=== PATIENT | female | born 1950 | race Caucasian/White ===

== ENCOUNTER 2018-02-14 15:59 | Emergency (ER) | payer OTHER ==
[2018-02-14 16:56] LABS: Absolute Lymphocytes (CBC) 1.9 K/uL (0.7-4.9); Absolute Neutrophil 7.9 K/uL (1.8-8.0); Basophils % 0.6 % (0-1.3); Eosinophils % 1.8 % (0-4.4); Hematocrit 32.1 % (36.0-45.0); MCH 30.1 pg (27.0-35.0); MCV 86.1 fL (80-100); MPV 10.1 fL (7.6-11.3); Monocytes % 9.4 % (3.3-12.3); RBC Red Blood Cell Count 3.73 M/uL (3.86-4.86)
[2018-02-14 16:57] LABS: Protime INR 0.96
--- NOTE | 2018-02-14 17:20 | RAD REPORT ---
EXAM DESCRIPTION: RAD - Chest Single View - 02/14/2018 5:14 pm CLINICAL HISTORY: Tachycardia COMPARISON: 09/30/2014 FINDINGS: Portable technique limits examination quality. The lungs are grossly clear. The heart is normal in size. Prominent degenerative changes are present in the right shoulder. IMPRESSION: No acute intrathoracic process suspected.
--- NOTE | 2018-02-14 17:40 | EDPHYS ---
Physician Documentation [facility] Name: Nuha Hussein Age: 67 yrs Sex: Female : 1950 Arrival Date: 02/14/2018 Time: 16:01 Bed 2 Private MD: ED Physician Regino Mcgregor HPI: 02/14 17:37 This 67 yrs old Female presents to ER via Ambulatory with complaints of gs Abnormal EKG. 17:37 The patient presents with a history of irregular heart beat, heart racing. Context: The gs symptoms occur at rest. Onset: The symptoms/episode began/occurred last night. Duration: The patient or guardian reports multiple episodes, that wax and wane, with no pattern. Modifying factors: The symptoms are aggravated by nothing. The symptoms are alleviated by nothing. Associated signs and symptoms: Pertinent negatives: chest pain, SOB, syncope. Severity of symptoms: At their worst the symptoms were moderate in the emergency department the symptoms have improved markedly. The patient has experienced similar episodes in the past, a few times. Historical: - Allergies: 16:20 No Known Allergies; aj - Home Meds: 16:20 Lisinopril Oral [Active]; amlodipine oral [Active]; Metformin Oral [Active]; Glipizide aj Oral [Active]; Lovastatin Oral [Active]; - PMHx: 16:20 Hyperlipidemia; Hypertension; Diabetes - NIDDM; aj - PSHx: 16:20 None; aj - Immunization history:: Adult Immunizations up to date. - Social history:: Smoking status: Patient/guardian denies using tobacco. ROS: 17:37 All other systems are negative. gs Exam: 17:37 Head/Face: Normocephalic, atraumatic. Eyes: Pupils equal round and reactive to light, gs extra-ocular motions intact. Lids and lashes normal. Conjunctiva and sclera are non-icteric and not injected. Cornea within normal limits. Periorbital areas with no swelling, redness, or edema. ENT: Nares patent. No nasal discharge, no septal abnormalities noted. Tympanic membranes are normal and external auditory canals are clear. Oropharynx with no redness, swelling, or masses, exudates, or evidence of obstruction, uvula midline. Mucous membranes moist. Neck: Trachea midline, no thyromegaly or masses palpated, and no cervical lymphadenopathy. Supple, full range of motion without nuchal rigidity, or vertebral point tenderness. No Meningismus. Chest/axilla: Normal chest wall appearance and motion. Nontender with no deformity. No lesions are appreciated. Cardiovascular: Regular rate and rhythm with a normal S1 and S2. No gallops, murmurs, or rubs. Normal PMI, no JVD. No pulse deficits. Respiratory: Lungs have equal breath sounds bilaterally, clear to auscultation and percussion. No rales, rhonchi or wheezes noted. No increased work of breathing, no retractions or nasal flaring. Abdomen/GI: Soft, non-tender, with normal bowel sounds. No distension or tympany. No guarding or rebound. No evidence of tenderness throughout. Back: No spinal tenderness. No costovertebral tenderness. Full range of motion. Skin: Warm, dry with normal turgor. Normal color with no rashes, no lesions, and no evidence of cellulitis. MS/ Extremity: Pulses equal, no cyanosis. Neurovascular intact. Full, normal range of motion. Neuro: Awake and alert, GCS 15, oriented to person, place, time, and situation. Cranial nerves II-XII grossly intact. Motor strength 5/5 in all extremities. Sensory grossly intact. Cerebellar exam normal. Normal gait. 17:37 Constitutional: The patient appears alert, awake. 17:37 ECG was reviewed by the Attending Physician. Vital Signs: 16:20 BP 168 / 88; Pulse 90; Resp 20; Pulse Ox 99% on R/A; Weight 108.41 kg; Height 5 ft. 8 aj in. (172.72 cm); Pain 0/10; 17:20 BP 142 / 77; Pulse 89; Resp 18; Pulse Ox 100% on R/A; Pain 0/10; sg 18:20 BP 140 / 76; Pulse 87; Resp 17 S; Pulse Ox 100% on R/A; Pain 0/10; sg 16:20 Body Mass Index 36.34 (108.41 kg, 172.72 cm) aj MDM: 16:18 Patient medically screened. 17:37 Differential diagnosis: arrythmia, dehydration, stress disorder, cad. Data reviewed: vital signs, nurses notes. Response to treatment: the patient's symptoms have resolved after treatment, and as a result, I will discharge patient. 02/14 16:24 Order name: Basic Metabolic Panel; Complete Time: 17:16 02/14 16:24 Order name: CBC with Diff; Complete Time: 17:16 02/14 16:24 Order name: PT-INR; Complete Time: 17:16 02/14 16:24 Order name: Troponin (emerg Dept Use Only); Complete Time: 17:16 02/14 17:17 Order name: TSH 02/14 17:17 Order name: Thyroid Stimulating Hormone [facility] 02/14 16:24 Order name: XRAY Chest (1 view); Complete Time: 17:24 02/14 16:24 Order name: EKG; Complete Time: 16:25 02/14 16:24 Order name: Cardiac monitoring; Complete Time: 16:45 02/14 16:24 Order name: EKG - Nurse/Tech; Complete Time: 16:45 02/14 16:24 Order name: IV Saline Lock; Complete Time: 16:45 02/14 16:24 Order name: Labs collected and sent; Complete Time: 16:45 02/14 16:24 Order name: O2 Per Protocol; Complete Time: 16:45 02/14 16:24 Order name: O2 Sat Monitoring; Complete Time: 16:45 gs EC:37 Rate is 82 beats/min. Rhythm is regular. CT interval is normal. QRS interval is normal. gs QT interval is normal. T waves are Normal. No ST changes noted. Clinical impression: Normal ECG. Interpreted by me. Administered Medications: No medications were administered Disposition: 02/14/18 17:39 Discharged to Home. Impression: Palpitations. - Condition is Stable. - Discharge Instructions: Palpitations. - Medication Reconciliation Form, Thank You Letter, Antibiotic Education, Prescription Opioid Use form. - Follow up: Cornelius Blount MD; When: 2 - 3 days; Reason: Re-evaluation by your physician. Signatures: Dispatcher [employer] EDJavier Tolbert RN RN sg Myers, Amanda, RN RN aj Starr, Gregory, MD MD
--- NOTE | 2018-02-14 17:40 | ER ---
Nurse's Notes [facility] Name: Nuha Hussein Age: 67 yrs Sex: Female : 1950 Arrival Date: 02/14/2018 Time: 16:01 Bed 2 Private MD: Diagnosis: Palpitations Presentation: 02/14 16:17 Presenting complaint: Patient states: Rapid heart rate with nausea last night at 2100. aj Went to [facility] this afternoon and had abnormal EKG. Denies chest pain currently. Transition of care: patient was not received from another setting of care. Onset of symptoms was February 13, 2018. Initial Sepsis Screen: Does the patient meet any 2 criteria? No. Patient's initial sepsis screen is negative. Does the patient have a suspected source of infection? No. Patient's initial sepsis screen is negative. Care prior to arrival: None. 16:17 Method Of Arrival: Ambulatory 16:17 Acuity: JOSE 3 Triage Assessment: 16:20 General: Appears in no apparent distress. comfortable, Behavior is calm, cooperative, aj appropriate for age. Pain: Denies pain. Neuro: Level of Consciousness is awake, alert, obeys commands, Oriented to person, place, time, situation. Cardiovascular: Capillary refill < 3 seconds in bilateral fingers. Respiratory: Airway is patent Respiratory effort is even, unlabored, Respiratory pattern is regular, symmetrical. Derm: Skin is intact, is healthy with good turgor, Skin is pink, warm \T\ dry. normal. Historical: - Allergies: 16:20 No Known Allergies; aj - Home Meds: 16:20 Lisinopril Oral [Active]; amlodipine oral [Active]; Metformin Oral [Active]; Glipizide aj Oral [Active]; Lovastatin Oral [Active]; - PMHx: 16:20 Hyperlipidemia; Hypertension; Diabetes - NIDDM; aj - PSHx: 16:20 None; aj - Immunization history:: Adult Immunizations up to date. - Social history:: Smoking status: Patient/guardian denies using tobacco. Screenin:30 Abuse screen: Denies threats or abuse. Denies injuries from another. Nutritional ss screening: No deficits noted. Tuberculosis screening: No symptoms or risk factors identified. Never had TB. Fall Risk None identified. Assessment: 16:30 General: Appears in no apparent distress. comfortable, well groomed, well developed, ss well nourished, Behavior is calm, cooperative, appropriate for age. Pain: Denies pain. Neuro: Level of Consciousness is awake, alert, obeys commands, Oriented to person, place, time, Pot Room Tapper are equal bilaterally Moves all extremities. Full function Gait is steady, Speech is normal. Cardiovascular: Heart tones S1 S2 present Capillary refill is brisk in bilateral fingers Patient's skin is warm and dry. Pulses are palpable in right radial artery and left radial artery Chest pain is denied. Respiratory: Airway is patent Respiratory effort is even, unlabored, Respiratory pattern is regular, symmetrical, Breath sounds are clear. GI: No signs and/or symptoms were reported involving the gastrointestinal system. : No signs and/or symptoms were reported regarding the genitourinary system. EENT: No signs and/or symptoms were reported regarding the EENT system. Derm: Skin is pink, warm \T\ dry. Musculoskeletal: No signs and/or symptoms reported regarding the musculoskeletal system. Vital Signs: 16:20 BP 168 / 88; Pulse 90; Resp 20; Pulse Ox 99% on R/A; Weight 108.41 kg; Height 5 ft. 8 aj in. (172.72 cm); Pain 0/10; 17:20 BP 142 / 77; Pulse 89; Resp 18; Pulse Ox 100% on R/A; Pain 0/10; sg 18:20 BP 140 / 76; Pulse 87; Resp 17 S; Pulse Ox 100% on R/A; Pain 0/10; sg 16:20 Body Mass Index 36.34 (108.41 kg, 172.72 cm) ED Course: 16:01 Patient arrived in ED. as 16:07 Javier Oropeza, MAMTA is Primary Nurse. sg 16:08 Regino Mcgregor MD is Attending Physician. 16:19 Triage completed. 16:20 Arm band placed on right wrist. Patient placed in an exam room. EKG completed in triage. Results shown to MD. 16:30 Patient has correct armband on for positive identification. sg 16:42 No provider procedures requiring assistance completed. Initial lab(s) drawn, by me, ss sent to lab. Inserted saline lock: 20 gauge in left antecubital area, using aseptic technique. Blood collected. Patient maintains SpO2 saturation greater than 95% on room air. 17:13 X-ray completed. Portable x-ray completed in exam room. Patient tolerated procedure kc2 well. 17:14 XRAY Chest (1 view) In Process Unspecified. EDMS 17:39 Cornelius Blount MD is Referral Physician. gs 18:40 IV discontinued, intact, bleeding controlled, No redness/swelling at site. Pressure sg dressing applied. Administered Medications: No medications were administered Outcome: 17:39 Discharge ordered by MD. gs 18:40 Discharged to home ambulatory, with family. sg 18:40 Condition: good 18:40 Discharge instructions given to patient, family, Instructed on discharge instructions, follow up and referral plans. safety practices, Demonstrated understanding of instructions, follow-up care. 18:41 Patient left the ED. sg Signatures: Dispatcher [employer] EDMS Javier Oropeza RN RN Kim Hedrick RN RN aj Martinez, Amelia as Smirch, Shelby, RN RN ss Carr, Kelsie kc2 Regino Mcgregor MD MD
--- NOTE | 2018-02-15 16:29 | EKG ---
Test Date: 2018-02-14 Test Time: 16:10:04 [employer] Programmer: ABDULAZIZ MEASUREMENT RESULTS: Intervals: Rate: 82 HI: 176 QRSD: 86 QT: 364 QTc: 425 [place]: P: 77 HI: 176 QRS: 75 T: 70 INTERPRETIVE STATEMENTS: Normal sinus rhythm Normal ECG Compared to ECG 09/30/2014 16:43:56 No significant changes Electronically Signed On 02-15-18 16:24:04 CDT by Cornelius Blount
== END 2018-02-14 18:41 | disposition home or self-care (01) ==
LOC: ER 15:59
DX: R00.2 Palpitations (principal); I10 Essential (primary) hypertension; E11.9 Type 2 diabetes mellitus without complications; E78.5 Hyperlipidemia, unspecified
CPT/HCPCS: 36415; 71045; 80048; 84443; 84484; 85025; 85610; 93005; 99284